=== PATIENT | male | born 1975 | race Caucasian/White ===

== ENCOUNTER → 2024-06-29 18:44 | Outpatient (CLI) | payer OTHER, SELFPAY ==
--- NOTE | 2024-06-29 18:49 | DI.MRI.S_ITS ---
PROCEDURE: MR LUMBAR SPINE WO CON INDICATIONS: LUMBAGO W/SCIATICA TECHNIQUE: Noncontrast sagittal T1 spin echo and T2 fast echo, sagittal STIR, and T2 fast spin echo through the lumbar spine. In cases with scoliosis, additional coronal T2 fast spin echo may be performed. COMPARISON: None. FINDINGS: Image quality: Excellent. Alignment and Curvature: There is normal bony alignment. Bone Marrow: Marrow is of normal overall signal. No acute vertebral body compression fractures. Spinal Cord: Conus medullaris terminates at the L1 level. Visualized cord demonstrates normal signal and size. Paraspinous Soft Tissues: No paravertebral masses. T12-L1: Normal appearance. L1-L2: Normal appearance. L2-L3: Normal appearance. L3-L4: Mild loss of disc height is seen. Loss of disc signal is seen. Mild to moderate disc bulge is seen, with a mild central disc protrusion. There is a focal annular fissure seen posteriorly. There is mild right-sided and no left-sided neural foraminal narrowing. Mild central canal narrowing is seen. L4-L5: Moderate loss of disc height is seen. Loss of disc signal is seen. Moderate disc bulge is seen, which is eccentric to the right. Reactive marrow endplate changes are seen posteriorly, which are hypointense on T1-weighted imaging and hyperintense on T2 weighted imaging, which is most consistent with edema (Modic type I changes). There is a central/right disc protrusion seen. Mild facet joint hypertrophy is seen. Mild to moderate bilateral neural foraminal narrowing can be seen. Mild central canal narrowing is seen. L5-S1: Moderate loss of disc height is seen. Loss of disc signal is seen. Moderate disc bulge is seen, with a superimposed central/left disc extrusion. There is a sequestered disc fragment seen that measures 12 mm craniocaudal, as demonstrated on series 2, images 10 and 11. Mild facet joint hypertrophy is seen. There is at least moderate bilateral neural foraminal narrowing seen. There is a degree of compression seen upon the exiting nerve roots. Moderate central canal narrowing is seen. There is mass effect upon transiting nerve roots at this level, particularly upon the transiting left S1 and S2 nerve roots. IMPRESSION: At the L5-S1 level, there is a central/left disc extrusion, with an associated sequestered disc fragment. Associated mass effect can be seen upon transiting left-sided nerve roots. At L5-S1, there is at least moderate bilateral neural foraminal narrowing and moderate central canal narrowing. Milder degenerative changes are seen elsewhere. Dictated by: Juaquin Roe M.D. on 06/30/2024 at 9:38 Approved by: Juaquin Roe M.D. on 06/30/2024 at 9:41
== END ==
DX: M51.16 Intervertebral disc disorders with radiculopathy, lumbar region (principal); M47.26 Other spondylosis with radiculopathy, lumbar region; M48.061 Spinal stenosis, lumbar region without neurogenic claudication; M51.17 Intervertebral disc disorders with radiculopathy, lumbosacral region; M47.27 Other spondylosis with radiculopathy, lumbosacral region; M48.07 Spinal stenosis, lumbosacral region
CPT/HCPCS: 72148

== ENCOUNTER 2024-08-30 11:01 | Day surgery (SDC) | payer OTHER, SELFPAY ==
[2024-08-30] MEDS: LACTATED RINGERS 1,000 ML 42 ML IV (11:31)
[2024-08-30 11:38] VITALS: BP 121/79; PULSE 51; RESP 16; TEMP 36.1; O2SAT 98
--- NOTE | 2024-08-30 12:11 | PM.HP.1 ---
History of Present Illness History of Present Illness Chief complaint: Screening Colonoscopy Narrative: First screening colonoscopy asymptomatic, no family history PFSH Social History Smoking Status: Never smoker alcohol intake: current Meds Home Medications and Allergies Home Medications Medication Instructions Recorded Confirmed Type No Known Home Medications 08/30/24 08/30/24 History Allergies Allergy/AdvReac Type Severity Reaction Status Date / Time No Known Drug Allergies Allergy Verified 08/30/24 11:30 Exam Vital Signs (past 8 hours): - 08/30/24 11:38 Temperature 97 F L Pulse Rate 51 L Respiratory Rate 16 Blood Pressure 121/79 Pulse Oximetry 98 Oxygen Delivery Method Room Air Oxygen Delivery Method Room Air Narrative Exam Narrative: Oropharynx free of lesions Chest clear to auscultation percussion Cardiac exam reveals no S3 or murmur Assessment & Plan Assessment & Plan narrative: For screening colonoscopy need for colonoscopy. Risks benefits and alternatives have been explained Time-Based Coding :: [TOTAL MINUTES] spent with patient and on the chart (including review of chart, obtaining history, exam, reviewing outside data, placing orders, documenting exam and treatment plan, and counseling patient) on [DATE].
--- NOTE | 2024-08-30 12:12 | P.OP.COLON_ITS ---
Operative Date/Time/Diagnoses Date of procedure: 08/30/24 Pre-op diagnosis: See indication and findings Procedure & Clinicians Study performed: Colonoscopy Indications: Screening Surgeon: Karson Chapin Procedure Notes Procedure in detail: After informed consent was obtained the patient was placed in left lateral d ecubitus position. The video colonoscope was introduced the rectum slowly advanced cecum. On slow withdrawal mucosa was carefully examined. Preparation was good. The scope was removed. The patient tolerated procedure well. Complications none Sedation mac Findings 1. Normal colonoscopy to cecum Patient should have follow-up colonoscopy in 10 years
[2024-08-30 12:31] VITALS: BP 90/58; BP 99/69; PULSE 50; PULSE 55; RESP 12; RESP 15; TEMP 36.6; O2SAT 97; O2SAT 98
[2024-08-30 12:46] VITALS: BP 111/80; PULSE 52; RESP 14; TEMP 36.6; O2SAT 98
== END 2024-08-30 12:52 | disposition home or self-care (01) ==
PROVIDERS: Referring Provider Internal Medicine Gastroenterology; Visit Provider Internal Medicine Gastroenterology
PROC: 0DJD8ZZ Inspection of Lower Intestinal Tract, Via Natural or Artificial Opening Endoscopic (ICD-10-PCS; CPT 45378; principal; 2024-08-30 13:30)
DX: Z12.11 Encounter for screening for malignant neoplasm of colon (principal)
CPT/HCPCS: 45378; J2704

== ENCOUNTER → 2024-09-07 06:42 | Outpatient (CLI) | payer OTHER, SELFPAY ==
--- NOTE | 2024-09-07 06:43 | DI.ECHO.S_ITS ---
[facility]---------+ [facility] : : [address] : : [place] : : [id number] : : Phone: [phone] Echocardiogram Report + + :Name: TIMOTHY GARCIA Study Date: 09/07/2024 Height: 72 in : :Hospital ReadingLocation: Weight: 210 lb : : Gender: Male BSA: 2.2 m2 : :: 1975 Age: 49 yrs BP: 116/76 mmHg: :Reason For Study: SOB, PALPITATIONS : :Ordering Physician: MICHELE, : :MARC Performed By: Ab Ambriz : :Referring: MARC BAUTISTA : + + Interpretation Summary 1. The left ventricular contractility is normal. Estimate ejection fraction is greater than 55% with no segmental wall motion abnormalities. No LVH. Normal diastolic function. 2. The right ventricular contractility is normal. 3. Significant right ventricular enlargement noted. There is also biatrial enlargement present. The left ventricular cavity is of normal size. 4. No significant valvular abnormalities. 5. No obvious intracardiac shunts. 6. No obvious intracardiac masses nor thrombi. 7. No hemodynamically significant pericardial effusion. 8. Low right-sided filling pressures. Conclusion: Normal biventricular function with isolated right ventricular enlargement. Recommend cardiac MRI for further evaluation. Procedure: A two-dimensional transthoracic echocardiogram with color flow and Doppler was performed. The study quality was technically good. There is no prior echocardiogram noted for this patient. The patient was in normal sinus rhythm during the exam. Left Ventricle: The left ventricle is normal in size. There is normal left ventricular wall thickness. There is no ventricular septal defect visualized. The ejection fraction is estimated to be 55-60%. There are no focal wall motion abnormalities. Diastolic parameters suggest probable normal left ventricular diastolic function and normal filling pressures. Right Ventricle: The right ventricle is moderate to severely dilated. The right ventricular systolic function is normal. Atria: The left atrium is moderately dilated. The right atrium is mild to moderately dilated. There is no Doppler evidence for an interatrial shunt. Mitral Valve: The mitral valve leaflets appear normal. There is no evidence of stenosis, fluttering, or prolapse. There is no mitral regurgitation noted. Aortic Valve: The aortic valve is trileaflet. The aortic valve opens well. No aortic regurgitation is present. Tricuspid Valve: The tricuspid valve leaflets are thin and pliable. No tricuspid regurgitation. Pulmonic Valve: The pulmonic valve leaflets are thin and pliable; valve motion is normal. There is trace pulmonic regurgitation. Great Vessels: The aortic root is normal size. The dimensions of the ascending aorta are normal. The pulmonary artery is normal size. The IVC is of normal diameter and collapses greater than 50% with a sniff. This suggests a low right atrial pressure of 3 mm Hg. Pericardium/ Pleura There is no pericardial effusion. There is no pleural effusion. MMode/2D Measurements & Calculations LVIDd: 5.9 cm LVOT diam: 2.2 cm LVIDs: 3.9 cm Ao root diam: 3.2 cm FS: 34.1 % asc Aorta Diam: 3.1 cm EPSS: 0.58 cm Ao Arch Diam (Prox Trans): 1.8 cm IVSd: 0.81 cm LVPWd: 0.85 cm LV jones. diameter/BSA (cm/m^2): 2.7 LV sys. diameter/BSA (cm/m^2): 1.8 LA A2 area: 26.9 cm2 RA long axis: 5.3 cm LA A4 area: 24.1 cm2 RA area: 20.9 cm2 LA length (vol): 6.0 cm RA vol: 70.3 ml LA vol: 92.4 ml RA : 32.3 ml/m2 LA vol index: 42.5 ml/m2 IVC diam: 1.9 cm RVD1 (basal): 5.7 cm RVD2 (mid): 4.8 cm TAPSE: 3.0 cm Doppler Measurements & Calculations Ao V2 max: 129.3 cm/sec LVOT Max Augustus: 108.7 cm/sec Ao V2 mean: 89.1 cm/sec LV V1 max P.7 mmHg Ao max P.7 mmHg LV V1 VTI: 22.8 cm Ao mean P.5 mmHg ANA(I,D): 2.8 cm2 Ao V2 VTI: 30.9 cm ANA(V,D): 3.1 cm2 sev ratio: 0.74 ANA indexed to BSA (cm^2/m^2): 1.3 MV E max augustus: 67.9 cm/sec PA V2 max: 73.8 cm/sec MV A max augustus: 36.5 cm/sec PA V2 mean: 51.1 cm/sec MV E/A: 1.9 PA mean P.2 mmHg Med Peak E' Augustus: 9.4 cm/sec PA pr(Accel): -1.5 mmHg E/E' med: 7.2 Lat Peak E' Augustus: 14.5 cm/sec E/E' lat: 4.7 E/e' average: 5.9 MV dec time: 0.18 sec [facility] 85.1 ml Reading Physician:TIFF
== END ==
PROVIDERS: Referring Provider Chiropractor; Visit Provider Chiropractor
DX: R00.2 Palpitations (principal); R06.02 Shortness of breath
CPT/HCPCS: 93306; 94060